=== PATIENT | male | born 1980 | race Caucasian/White ===

== ENCOUNTER 2020-10-15 19:54 | Emergency (ER) | payer SELFPAY ==
--- NOTE | 2020-10-15 20:14 | ED.GENADULT ---
HPI - General Adult General Chief complaint: Eye Problems Stated complaint: Bee Sting to the right Eye causing swelling Source: patient Mode of arrival: ambulatory Limitations: no limitations History of Present Illness HPI narrative: Patient presents for evaluation of insect sting to the right eyelid. He indicates that this occurred just prior to arriving here. States that currently he feels like there is something stuck and rubbing with the right eye. He denies diplopia, halos, black spot. He has some tearing in the right eye. He had a similar reaction to this in the past when he sustained an insect sting to the right eyelid. No difficulty breathing or swallowing. No additional complaints or concerns. Related Data Allergies Allergy/AdvReac Type Severity Reaction Status Date / Time No Known Allergies Allergy Verified 10/15/20 20:05 Review of Systems Review of Systems: Narrative: CONSTITUTIONAL: Denies fever, chills, or sweats. EYES: Reports swelling to the right upper and lower eyelid. Reports tearing from the right eye. Reports something rubbing and stuck in the right eye. Denies black spots and diplopia ENT: Denies rhinorrhea, congestion, sore throat, or otalgia. CARDIOVASCULAR: Denies chest pain, palpitations, or edema. RESPIRATORY: Denies cough or dyspnea. GASTROINTESTINAL: Denies abdominal pain, nausea, vomiting, or diarrhea. GENITOURINARY: Denies dysuria or hematuria. SKIN: Denies rash or itching. MUSCULOSKELETAL: Denies back pain, joint pain, or myalgia. NEUROLOGIC: Denies headache, numbness, dizziness, or weakness. PSYCHIATRIC: Denies anxiety or depression. [facility] Past Medical History Medical History Tobacco use Surgical History Surgical History No pertinent past surgical history Family History Family History Mother No problems noted. Social History Social History Smoking packs per day: 2 Smoking cigarettes per day: 40.0 Smoking status: Current every day smoker Substance use type: does not use Living arrangements: with family Gender identity (if verbalized by the patient): Male Spiritual care concerns: No Exam Narrative: Exam Narrative: GENERAL: Well-appearing, well-nourished, and in no acute distress. HEAD: Normocephalic, atraumatic. EYES: PERRLA and EOMI. swelling noted to the right upper and lower eyelid. There is an area of dye uptake noted at 7:00 adjacent to the right pupil when evaluated with Lopez lamp. Tearing present. ENT: Nares clear, no rhinorrhea or epistaxis. Mucous membranes moist. Oropharynx without tonsillar hypertrophy exudate or other lesions. Bilateral TMs pearly cobian nonbulging NECK: Supple. No adenopathy or masses. No carotid bruits or JVD CHEST: Clear to auscultation. No respiratory distress. No wheezes rales or rhonchi HEART: Regular rate and rhythm. No murmur heard. Normal peripheral pulses. ABDOMEN: Soft, nontender, nondistended, normal active bowel sounds. EXTREMITIES: Normal range of motion. No edema. SKIN: Warm, dry, no rash. NEURO: No focal deficits. Alert and oriented x3. PSYCH: Normal mood and affect. Course Course Emergency Course: This is a 39-year-old male that presents after an insect sting to the right eyelid. He has some swelling present with a normal allergic response. He was given Solu-Medrol in the facility. He does have a corneal abrasion, likely from rubbing his right eye. Will discharge home with erythromycin ophthalmic, prednisone and Benadryl. Medical Decision Making Differential Diagnosis Differential Diagnosis: Allergic reaction secondary to insect bite versus periorbital cellulitis versus other Discharge Plan Discharge Clinical Impression: Allergic reaction to insect sting Qualifiers: Encounter type: initial encounter Injury intent:
[2020-10-15] MEDS: methylPREDNISolone SOD SUCC 125 MG VIAL IM (20:18)
[2020-10-15] MEDS: BALANCED SALT SOLN OPHTH IRRIG 30 ML BTL 10 ML RIGHT EYE (20:21)
[2020-10-15] MEDS: PROPARACAINE HCL 0.5% 15 ML OPHTH SOLN 1 DROP RIGHT EYE (20:21)
[2020-10-15] MEDS: FLUORESCEIN SOD 1 MG/STRIP EACH EYE (20:21)
== END 2020-10-15 20:32 | disposition home or self-care (01) ==
PROVIDERS: Emergency Provider Nurse Practitioner
DX: T63.441A Toxic effect of venom of bees, accidental (unintentional), initial encounter (principal); S05.01XA Injury of conjunctiva and corneal abrasion without foreign body, right eye, initial encounter; X58.XXXA Exposure to other specified factors, initial encounter; F17.210 Nicotine dependence, cigarettes, uncomplicated
CPT/HCPCS: 96372; 99203; A9270; G0463; J2930